=== PATIENT | female | born 1965 | race American Indian/Alaskan Native ===

== ENCOUNTER 2017-06-15 23:55 | Emergency (ER) | payer OTHER ==
[2017-06-16] MEDS ORDERED: ASPIRIN PO ONE ×2 (00:33→12:23)
[2017-06-16 01:18] LABS: BUN/Creatinine Ratio 14; Blood Urea Nitrogen 7 mg/dL (7-17); Calcium 8.9 mg/dL (8.4-10.2); Hemolysis Index 13
[2017-06-16 01:20] LABS: Basophils # (Auto) 0.1 K/mm3 (0.0-0.1); Basophils % (Auto) 0.9 % (0.0-1.8); Eosinophils # (Auto) 0.2 K/mm3 (0.0-0.4); Eosinophils % (Auto) 1.9 % (0.0-4.3); Hematocrit 35.1 % (30.3-42.9); Hemoglobin 10.3 gm/dl (10.1-14.3); Lymphocytes # (Auto) 2.6 K/mm3 (1.2-5.4); Lymphocytes % (Auto) 22.9 % (13.4-35.0); Mean Corpuscular HGB Conc 29 % (30-34); Mean Corpuscular Hemoglobin 21 pg (28-32); Mean Corpuscular Volume 70 fl (79-97); Monocytes # (Auto) 0.9 K/mm3 (0.0-0.8); Monocytes % (Auto) 7.7 % (0.0-7.3); Platelet Count 431 K/mm3 (140-440)
[2017-06-16] MEDS ORDERED: NACL 0.9% 1000 ML 1,000 ML IV ONE (11:33)
--- NOTE | 2017-06-16 12:26 | Emergency Department Report ---
ED Chest Pain HPI - General Chief Complaint: Chest Pain Stated Complaint: CP Time Seen by Provider: 06/16/17 11:14 Source: patient Mode of arrival: Ambulatory Limitations: No Limitations - History of Present Illness Initial Comments: Patient presents to the emergency department for evaluation of chest pain. She states that it's been under her left breast and intermittent since Wednesday. It generally has occurred at rest. Patient denies any nausea vomiting sweating diaphoresis or dizziness along with the chest pain. She has never been previously evaluated for chest pain. She is from the [place] and has not seen a physician for at least 2 years. She was unaware of her diabetes. Patient states that she has been previously treated for hypertension. Her blood pressure has been somewhat labile in the emergency department but last obtained was closed in the normal range. She states that her father had a myocardial infarction. She has not been a smoker. -: Gradual, days(s) Onset: during rest Pain Location: left chest Pain Radiation: none Severity scale (0 -10): 2 Quality: aching Consistency: intermittent, now resolved Improves With: nothing Worsens With: nothing re: denies: nausea, vomting, diaphoresis, dyspnea, sense of impending doom Other Symptoms: denies: cough, fever, syncope, rash, acid taste in mouth, leg swelling, palpitations, burping Aspirin use within the Past 7 Days: (0) No - Related Data On Oral Contraceptives: No Home Medications Medication Instructions Recorded Confirmed Last Taken Lisinopril 20 mg PO DAILY 06/16/17 06/16/17 Unknown Allergies Allergy/AdvReac Type Severity Reaction Status Date / Time sea food Allergy Rash Uncoded 06/16/17 00:31 Heart Score - HEART Score History: Slightly suspicious EKG: Non-specific Age: 45-65 Risk factors: > 3 risk factors or hx of atherosclerotic disease Troponin: < normal limit HEART Score: 4 - Critical Actions Critical Actions: 4-6 pts:12-16.6% risk of adverse cardiac event. Should be admitted ED Review of Systems ROS: Stated complaint: CP Other details as noted in HPI Constitutional: denies: chills, fever Eyes: denies: eye pain, eye discharge, vision change ENT: denies: ear pain, throat pain Respiratory: denies: cough, shortness of breath, wheezing Cardiovascular: chest pain. denies: palpitations Endocrine: no symptoms reported, other (states eats a lot of ice but denies the polys) Gastrointestinal: denies: abdominal pain, nausea, diarrhea Genitourinary: denies: urgency, dysuria, discharge Musculoskeletal: denies: back pain, joint swelling, arthralgia Skin: denies: rash, lesions Neurological: denies: headache, weakness, paresthesias Psychiatric: denies: anxiety, depression Hematological/Lymphatic: denies: easy bleeding, easy bruising ED Past Medical Hx - Past Medical History Hx Hypertension: Yes - Surgical History Past Surgical History?: No - Social History Smoking Status: Never Smoker Substance Use Type: None - Medications Home Medications: Home Medications Medication Instructions Recorded Confirmed Last Taken Type Lisinopril 20 mg PO DAILY 06/16/17 06/16/17 Unknown History ED Physical Exam - General Limitations: No Limitations General appearance: alert, in no apparent distress - Head Head exam: Present: atraumatic, normocephalic - Eye Eye exam: Present: normal appearance. Absent: scleral icterus - ENT ENT exam: Present: mucous membranes moist - Neck Neck exam: Present: normal inspection. Absent: tenderness, meningismus - Respiratory Respiratory exam: Present: normal lung sounds bilaterally. Absent: respiratory distress - Cardiovascular Cardiovascular Exam: Present: regular rate, normal rhythm. Absent: systolic murmur, diastolic murmur, rubs, gallop - GI/Abdominal GI/Abdominal exam: Present: soft, normal bowel sounds. Absent: distended, tenderness, guarding, rebound, rigid - Extremities Exam Extremities exam: Present: normal inspection - Back Exam Back exam: Present: normal inspection - Neurological Exam Neurological exam: Present: alert, oriented X3, CN II-XII intact. Absent: motor sensory deficit - Psychiatric Psychiatric exam: Present: normal affect, normal mood - Skin Skin exam: Present: warm, dry, intact, normal color. Absent: rash ED Course Vital Signs 06/16/17 06/16/17 06/16/17 00:26 08:20 10:37 Temperature 98.2 F 98.2 F Pulse Rate 94 H 78 Respiratory 18 14 11 L Rate Blood Pressure 166/92 Blood Pressure 153/88 [Left] O2 Sat by Pulse 98 98 Oximetry 06/16/17 06/16/17 10:47 11:58 Temperature 98.0 F Pulse Rate 76 Respiratory 20 18 Rate Blood Pressure Blood Pressure 136/64 [Left] O2 Sat by Pulse 96 Oximetry BRANDON score - Brandon Score Age > 65: (0) No Aspirin use within the Past 7 Days: (0) No 3 or more CAD Risk Factors: (1) Yes 2 or more Angina events in past 24 hrs: (0) No Known CAD with more than 50% Stenosis: (0) No Elevated Cardiac Markers: (0) No ST Deviation Greater than 0.5mm: (0) No BRANDON Score: 1 ED Medical Decision Making - Lab Data Result diagrams: 06/16/17 00:37 06/16/17 00:37 Laboratory Results - last 24 hr 06/16/17 06/16/17 06/16/17 00:37 00:37 00:37 WBC 11.3 H RBC 5.00 Hgb 10.3 Hct 35.1 MCV 70 L MCH 21 L MCHC 29 L RDW 19.0 H Plt Count 431 Lymph % (Auto) 22.9 [place] % (Auto) 7.7 H Eos % (Auto) 1.9 Baso % (Auto) 0.9 Lymph # 2.6 [place] # 0.9 H Eos # 0.2 Baso # 0.1 Seg Neutrophils % 66.6 Seg Neutrophils # 7.5 Sodium 132 L Potassium 3.9 Chloride 94.7 L Carbon Dioxide 23 Anion Gap 18 BUN 7 Creatinine 0.5 L Estimated GFR > 60 BUN/Creatinine Ratio 14 Glucose 427 H POC Glucose Calcium 8.9 Troponin T < 0.010 HCG, Qual Negative 06/16/17 06/16/17 06/16/17 04:34 06:10 10:38 WBC RBC Hgb Hct MCV MCH MCHC RDW Plt Count Lymph % (Auto) [place] % (Auto) Eos % (Auto) Baso % (Auto) Lymph # [place] # Eos # Baso # Seg Neutrophils % Seg Neutrophils # Sodium Potassium Chloride Carbon Dioxide Anion Gap BUN Creatinine Estimated GFR BUN/Creatinine Ratio Glucose POC Glucose 287 H Calcium Troponin T < 0.010 < 0.010 HCG, Qual 06/16/17 12:14 WBC RBC Hgb Hct MCV MCH MCHC RDW Plt Count Lymph % (Auto) [place] % (Auto) Eos % (Auto) Baso % (Auto) Lymph # [place] # Eos # Baso # Seg Neutrophils % Seg Neutrophils # Sodium Potassium Chloride Carbon Dioxide Anion Gap BUN Creatinine Estimated GFR BUN/Creatinine Ratio Glucose POC Glucose 277 H Calcium Troponin T HCG, Qual - EKG Data -: EKG Interpreted by Me EKG shows normal: sinus rhythm Rate: normal - EKG Data Interpretation: nonspecific ST-T wave nella - Radiology Data interpreted by me: Chest x-ray no acute process Critical care attestation.: If time is entered above; I have spent that time in minutes in the direct care of this critically ill patient, excluding procedure time. ED Disposition Clinical Impression: Essential hypertension Chest pain Qualifiers: Chest pain type: unspecified Qualified Code(s): R07.9 - Chest pain, unspecified Hyperglycemia due to type 2 diabetes mellitus Qualifiers: Diabetes mellitus oysterman insulin use: without oysterman use Qualified Code(s ): E11.65 - Type 2 diabetes mellitus with hyperglycemia Disposition: DC09 OP ADMIT IP TO THIS HOSP Is pt being admited?: Yes Does the pt Need Aspirin: Yes Condition: Stable Instructions: Chest Pain (ED), Diabetes Mellitus Type 2 in Adults (ED), Hypertension (ED) Referrals: SHAYNA SESAY MD [Primary Care Provider] - 3-5 Days Time of Disposition: 12:33
--- NOTE | 2017-06-16 12:34 | History and Physical Report ---
Medications and Allergies Allergies Allergy/AdvReac Type Severity Reaction Status Date / Time sea food Allergy Rash Uncoded 06/16/17 00:31 Home Medications Medication Instructions Recorded Confirmed Last Taken Type Lisinopril 20 mg PO DAILY 06/16/17 06/16/17 Unknown History Active Meds: Active Medications Sodium Chloride (Nacl 0.9% 1000 Ml) 1,000 mls @ 125 mls/hr IV ONCE ONE Stop: 06/16/17 19:32 Exam - Constitutional Vitals: Temp Pulse Resp BP Pulse Ox 98.0 F 76 18 136/64 96 06/16/17 10:47 06/16/17 10:47 06/16/17 11:58 06/16/17 10:47 06/16/17 10:47 Results - Labs CBC & Chem 7: 06/16/17 00:37 06/16/17 00:37 Labs: Abnormal lab results 06/16/17 06/16/17 06/16/17 Range/Units 00:37 00:37 10:38 WBC 11.3 H (4.5-11.0) K/mm3 MCV 70 L (79-97) fl MCH 21 L (28-32) pg MCHC 29 L (30-34) % RDW 19.0 H (13.2-15.2) % [place] % (Auto) 7.7 H (0.0-7.3) % [place] # 0.9 H (0.0-0.8) K/mm3 Sodium 132 L (137-145) mmol/L Chloride 94.7 L (98-107) mmol/L Creatinine 0.5 L (0.7-1.2) mg/dL Glucose 427 H (65-100) mg/dL POC Glucose 287 H (70-105) 06/16/17 Range/Units 12:14 WBC (4.5-11.0) K/mm3 MCV (79-97) fl MCH (28-32) pg MCHC (30-34) % RDW (13.2-15.2) % [place] % (Auto) (0.0-7.3) % [place] # (0.0-0.8) K/mm3 Sodium (137-145) mmol/L Chloride (98-107) mmol/L Creatinine (0.7-1.2) mg/dL Glucose (65-100) mg/dL POC Glucose 277 H (70-105)
[2017-06-16 12:41] LABS: INR 0.91 (0.87-1.13); Partial Thromboplastin Time 24.9 Sec. (24.2-36.6)
[2017-06-16 12:50] LABS: Alanine Aminotransferase 9 units/L (7-56); Albumin 3.7 g/dL (3.9-5)
[2017-06-16 12:57] LABS: Bilirubin,Direct < 0.2 mg/dL (0-0.2)
[2017-06-16 14:10] VITALS: BP 141/78
--- NOTE | 2017-06-16 14:26 | XRay Report ---
AP CHEST: HISTORY: Hypertension AP view of the chest demonstrates a normal mediastinal and cardiac contour with clear lungs and normal bony and soft tissue structures. IMPRESSION: Unremarkable AP chest.
== END 2017-06-16 15:20 | disposition home or self-care (01) ==
LOC: ED 23:55
DX: R07.9 Chest pain, unspecified (principal); I10 Essential (primary) hypertension; E11.65 Type 2 diabetes mellitus with hyperglycemia; Z91.013 Allergy to seafood
CPT/HCPCS: 36415; 71045; 80048; 80074; 82962; 83036; 83735; 83880; 84484; 84703; 85025; 85379; 85610; 85730; 93005; 93010; 96361; 96374; 99284; J7030; J1815